=== PATIENT | female | born 1950 | race Two or more races ===

== ENCOUNTER 2017-05-31 14:17 | Emergency (ER) | payer OTHER ==
[~2017-05-31] VITALS: Ht 157.5 cm; Wt 97.1 kg
[~2017-05-31 14:17] MED LIST: ABILIFY2 MG PO; ABILIFY5 MG; CLONAZEPAM0.5 MG; COUMADIN5 MG; COUMADIN5 MG PO; COUMADIN7.5 MG; COZAAR PO; DOXEPIN HCL150 MG; FLURAZEPAM HCL15 MG PO; FOLIC ACID0.4 MG; FUROSEMIDE40 MG PO; GEODON40 MG; GLUMETZA1000 MG; Glucotrol PO; LAMICTA; LAMICTAL100 MG; LASIX40 MG; LASIX40 MG PO; LIPITOR; LOSARTAN POTASS50 MG; LUNESTA3 MG PO; Lipitor PO; METFORMIN HCL500 MG; Mucinex 600 MG TABLET.SA PO; NEURONTIN300 MG; PAXIL CR37.5 MG; PAXIL20 MG PO; PAXIL40 MG; POM (MEDICAMENTO EN PHA) PO; PRELONE PO; PREVACID30 MG; PROTONIX40 MG PO; Pulmicort 0.5 MG/2 ML AMPUL IH; REMERON; SINGULAIR 10MG10 MG PO; SYNTHROID50 MCG PO; SYNTHROID88 MCG; Synthroid PO; TESSALON PERLE100 M1 PO; TOPROL XL25 M1; TOPROL XL25 M1 PO; TOPROL XL25 MG PO; XOPENEX0.63 MG/3 IH; [UNRECOGNIZED DRUG - OTHER]
[2017-05-31] MEDS ORDERED: VICTOZA 3-0.6 MG/0.1 (14:41)
== END 2017-05-31 21:05 | disposition home or self-care (01) ==
LOC: ER 14:17
DX: K29.70 Gastritis, unspecified, without bleeding (principal)

== ENCOUNTER 2018-05-27 19:42 | Emergency (ER) | payer OTHER ==
[~2018-05-27] VITALS: Ht 157.5 cm; Wt 105.2 kg
[~2018-05-27 19:42] MED LIST changes: +VICTOZA 3-0.6 MG/0.1
[2018-05-27] MEDS ORDERED: COZAAR25 MG PO (20:20)
[2018-05-27] MEDS ORDERED: ZYLOPRIM100 M1 PO (20:20)
[2018-05-27] MEDS ORDERED: RESTORIL30 M1 PO (20:20)
== END 2018-05-28 00:04 | disposition home or self-care (01) ==
LOC: ER 19:42
DX: R14.3 Flatulence (principal); R10.12 Left upper quadrant pain

== ENCOUNTER 2018-11-22 11:18 | Emergency (ER) | payer OTHER ==
[~2018-11-22] VITALS: Ht 157.5 cm; Wt 104.3 kg
[~2018-11-22 11:18] MED LIST changes: +COZAAR25 MG PO; +RESTORIL30 M1 PO; +ZYLOPRIM100 M1 PO
== END 2018-11-22 16:14 | disposition home or self-care (01) ==
LOC: ER 11:18
DX: M54.89 Other dorsalgia (principal); R05 Cough; J11.1 Influenza due to unidentified influenza virus with other respiratory manifestations

== ENCOUNTER 2019-09-24 11:21 | Emergency (ER) | payer OTHER ==
[~2019-09-24] VITALS: Ht 157.5 cm; Wt 1010.6 kg
[2019-09-24] MEDS ORDERED: SYNTHROID112 MCG (11:39)
[2019-09-24] MEDS ORDERED: METFORMIN 750MG (11:40)
[2019-09-24] MEDS ORDERED: XARELTO20 MG (11:41)
[2019-09-24] MEDS ORDERED: GLIMEPIRIDE4 MG (11:42)
== END 2019-09-24 16:44 | disposition home or self-care (01) ==
LOC: ER 11:21
DX: R53.1 Weakness (principal); D50.0 Iron deficiency anemia secondary to blood loss (chronic)

== ENCOUNTER 2019-10-01 12:21 | Emergency (ER) | payer OTHER ==
[~2019-10-01] VITALS: Ht 157.5 cm; Wt 104.3 kg
[~2019-10-01 12:21] MED LIST changes: +GLIMEPIRIDE4 MG; +METFORMIN 750MG; +SYNTHROID112 MCG; +XARELTO20 MG
[2019-10-01] MEDS ORDERED: INTEGRA F CAPS1 EACH (12:51)
[2019-10-01] MEDS ORDERED: NEURIN SL (12:51)
[2019-10-01] MEDS ORDERED: PEPCID AC20 MG PO (17:21)
== END 2019-10-01 17:48 | disposition home or self-care (01) ==
LOC: ER 12:21
DX: D64.89 Other specified anemias (principal); R53.1 Weakness; Z03.818 Encounter for observation for suspected exposure to other biological agents ruled out

== ENCOUNTER 2020-07-03 12:04 | Emergency (ER) | payer OTHER ==
[~2020-07-03] VITALS: Ht 157.5 cm; Wt 106.6 kg
[~2020-07-03 12:04] MED LIST changes: +INTEGRA F CAPS1 EACH; +NEURIN SL; +PEPCID AC20 MG PO
[2020-07-03] MEDS ORDERED: PREVACID30 M1 (13:12)
[2020-07-03] MEDS ORDERED: SYNTHROID112 MCG (13:12)
[2020-07-03] MEDS ORDERED: GLIMEPIRIDE2 MG (13:13)
[2020-07-03] MEDS ORDERED: LASIX20 MG (13:14)
[2020-07-03] MEDS ORDERED: JANTOVEN6 MG (13:16)
[2020-07-03] MEDS ORDERED: JANUVIA50 MG (13:16)
== END 2020-07-03 16:40 | disposition home or self-care (01) ==
LOC: ER 12:04
DX: R10.12 Left upper quadrant pain (principal)

== ENCOUNTER → 2020-10-09 | Outpatient (CLI) | payer OTHER ==
[~2020-10-09] MED LIST changes: +CARAFATE1 GM PO; +GLIMEPIRIDE2 MG; +JANTOVEN6 MG; +JANUVIA50 MG; +LASIX20 MG; +PREVACID30 M1
== END | disposition home or self-care (01) ==
LOC: RX STUDY 09:15
PROVIDERS: ATTEND Otolaryngology
DX: R13.13 Dysphagia, pharyngeal phase (principal)

== ENCOUNTER 2020-11-15 16:02 | Emergency (ER) | payer OTHER ==
[~2020-11-15] VITALS: Ht 157.5 cm; Wt 108.9 kg
[~2020-11-15 16:02] MED LIST changes: -CARAFATE1 GM PO
[2020-11-15] MEDS ORDERED: CARAFATE1 GM PO (21:11)
[2020-11-15] MEDS ORDERED: PEPCID AC20 MG PO (21:11)
== END 2020-11-15 21:25 | disposition home or self-care (01) ==
LOC: ER 16:02
DX: K29.70 Gastritis, unspecified, without bleeding (principal)

== ENCOUNTER 2020-11-24 12:37 | Emergency (ER) | payer OTHER ==
[~2020-11-24] VITALS: Ht 157.5 cm; Wt 104.8 kg
[~2020-11-24 12:37] MED LIST changes: +CARAFATE1 GM PO
[2020-11-24] MEDS ORDERED: GLIMEPIRIDE4 MG (13:16)
== END 2020-11-24 18:00 | disposition home or self-care (01) ==
LOC: ER 12:37
DX: K25.3 Acute gastric ulcer without hemorrhage or perforation (principal); R10.13 Epigastric pain

== ENCOUNTER 2021-11-16 10:27 | Emergency (ER) | payer OTHER ==
[~2021-11-16] VITALS: Ht 154.9 cm; Wt 102.1 kg
== END 2021-11-16 15:54 | disposition home or self-care (01) ==
LOC: ER 10:27
DX: R07.9 Chest pain, unspecified (principal); E11.65 Type 2 diabetes mellitus with hyperglycemia; Z79.84 Long term (current) use of oral hypoglycemic drugs; Z85.3 Personal history of malignant neoplasm of breast; Z20.822 Contact with and (suspected) exposure to COVID-19; I10 Essential (primary) hypertension; Z86.711 Personal history of pulmonary embolism

== ENCOUNTER 2022-03-08 12:32 | Inpatient (IN) | payer OTHER ==
[~2022-03-08] VITALS: Ht 157.5 cm; Wt 104.3 kg
--- NOTE | 2022-03-08 12:53 | NUR ---
SE RECIBE PACIENTE DE AMBULANCIA ALERTA ACOMPANADA DE FAMILIAR QUIEN REFIERE PRESENTA INFLAMACION DE LA PIERNA DERECHA HACE 1 MATT. SE MONITOREAN LOS SV Y SE DOCUMENTAN.PTE CON VENOPUNCION DE AMBULANCIA.SE CONECTA A CANULA A 2.
--- NOTE | 2022-03-08 13:25 | NUR ---
PACIENTE EVALUADA POR EL QUIEN ORDENA TRATAMIENTO. SE REALIZAN MUESTRAS BAJO MEDIDAS ASEPTICAS Y SE ADMINISTRAN MEDICAMENTOS LIDIA ORDEN. SE NOTIFICA PERSONAL DE TERAPIA RESPIRATOIA.
[2022-03-09] MEDS ORDERED: ATORVASTATIN CA10 MG (16:33)
[2022-03-09] MEDS ORDERED: ALLOPURINOL100 MG (16:33)
[2022-03-09] MEDS ORDERED: ZIPRASIDONE HCL20 MG (16:33)
[2022-03-09] MEDS ORDERED: ESTAZOLAM2 MG (16:33)
[2022-03-09] MEDS ORDERED: FAMOTIDINE20 MG (16:33)
[2022-03-09] MEDS ORDERED: LANSOPRAZOLE30 MG (16:33)
[2022-03-09] MEDS ORDERED: RIZATRIPTAN10 MG (16:33)
[2022-03-09] MEDS ORDERED: MIRTAZAPINE15 MG (16:33)
[2022-03-09] MEDS ORDERED: METOPROLOL SUCC25 MG (16:34)
[2022-03-09] MEDS ORDERED: FARXIGA10 MG (16:34)
[2022-03-09] MEDS ORDERED: OMEPRAZOLE20 MG (16:34)
== END 2022-03-21 18:56 | disposition expired | DRG 548 ==
LOC: ER 12:32 → MEDJ 22:38 → ICU 03-20 14:28
PROVIDERS: ADMIT Internal Medicine Geriatric Medicine; ATTEND Internal Medicine Geriatric Medicine
PROC: BQ27ZZZ Computerized Tomography (CT Scan) of Right Knee (ICD-10-PCS; 2022-03-08)
PROC: B24BYZZ Ultrasonography of Heart with Aorta using Other Contrast (ICD-10-PCS; 2022-03-08)
PROC: 02HV33Z Insertion of Infusion Device into Superior Vena Cava, Percutaneous Approach (ICD-10-PCS; 2022-03-09)
PROC: CW1N1ZZ Planar Nuclear Medicine Imaging of Whole Body using Technetium 99m (Tc-99m) (ICD-10-PCS; 2022-03-10)
PROC: CW1NLZZ Planar Nuclear Medicine Imaging of Whole Body using Gallium 67 (Ga-67) (ICD-10-PCS; 2022-03-10)
PROC: 8E0ZXY6 Isolation (ICD-10-PCS; principal; 2022-03-13)
PROC: 4A12X4Z Monitoring of Cardiac Electrical Activity, External Approach (ICD-10-PCS; 2022-03-13)
PROC: 30243N1 Transfusion of Nonautologous Red Blood Cells into Central Vein, Percutaneous Approach (ICD-10-PCS; 2022-03-18)
PROC: 0BH17EZ Insertion of Endotracheal Airway into Trachea, Via Natural or Artificial Opening (ICD-10-PCS; 2022-03-20)
PROC: 5A1945Z Respiratory Ventilation, 24-96 Consecutive Hours (ICD-10-PCS; 2022-03-20)
DX: M00.061 Staphylococcal arthritis, right knee (principal); A41.01 Sepsis due to Methicillin susceptible Staphylococcus aureus; U07.1 COVID-19; J96.01 Acute respiratory failure with hypoxia; R65.21 Severe sepsis with septic shock; T84.53XA Infection and inflammatory reaction due to internal right knee prosthesis, initial encounter; N17.9 Acute kidney failure, unspecified; D62 Acute posthemorrhagic anemia; Z68.41 Body mass index [BMI] 40.0-44.9, adult; E86.0 Dehydration; E11.22 Type 2 diabetes mellitus with diabetic chronic kidney disease; I12.9 Hypertensive chronic kidney disease with stage 1 through stage 4 chronic kidney disease, or unspecified chronic kidney disease; N18.30 Chronic kidney disease, stage 3 unspecified; E66.01 Morbid (severe) obesity due to excess calories; Z96.653 Presence of artificial knee joint, bilateral; Z79.4 Long term (current) use of insulin; I45.5 Other specified heart block